=== PATIENT | male | born 1935 | race Caucasian/White ===

== ENCOUNTER 2017-10-02 12:42 | Inpatient (IN) ==
[2017-10-02] MEDS ORDERED: IPRATROPIUM/ALBUTEROL 3 ML AMPUL.NEB NEB ONE ×2 (13:00→18:07)
[2017-10-02] MEDS ORDERED: ALBUTEROL SULFATE 2.5 MG/3 ML NEBULIZER NEB ONE ×2 (13:16→15:02)
[2017-10-02] MEDS ORDERED: 0.9 % SODIUM CHLORIDE 1,000 ML IV ONE (13:16)
[2017-10-02 13:56] LABS: Basophils # (Auto) 0 K/mcL (0.0-0.3); Basophils % (Auto) 0.3 % (0.0-2.0); Eosinophils # (Auto) 0 K/mcL (0.0-0.7); Eosinophils % (Auto) 0.5 % (0.0-7.0); Lymphocytes # (Auto) 0.6 K/mcL (1.5-4.8); Lymphocytes % (Auto) 16.5 % (15.5-49.0); Mean Cell Volume 94.4 fL (80.0-100.0); Mean Corpuscular HGB Conc 33.7 g/dL (31.0-36.0); Mean Corpuscular Hemoglobin 31.8 pg (26.0-34.0); Monocytes # (Auto) 0.3 K/mcL (0.1-0.9); Monocytes % (Auto) 9.7 % (1.0-12.0); Platelet Count 231 K/mcL (140-440); RBC 4.73 M/mcL (4.50-5.90); Red Cell Distribution Width 12.6 % (11.5-14.5)
[2017-10-02 14:21] LABS: ALT/SGPT 24 U/l (0-40); Albumin 3.9 gm/dL (3.2-5.2); Albumin/Globulin Ratio 1.3 (1.0-2.3); Alkaline Phosphatase 86 U/L (39-117); Blood Urea Nitrogen 14 mg/dl (8-23)
--- NOTE | 2017-10-02 14:42 | Emergency Department Note ---
SOB HPI - General Chief Complaint: Shortness of Breath/Dyspnea Stated Complaint: SOB Time Seen by Provider: 10/02/17 13:01 Source: patient Mode of arrival: ambulatory Limitations: no limitations - History of Present Illness 81-year-old male with shortness of breath/tightness in his chest. He was recently seen on 09/27/2017 or 6 days ago and was prescribed azithromycin and Tessalon Perles which have not helped much. He denies fever chills nausea vomiting diarrhea. He has known COPD but is not on oxygen or medicines for that - Related Data Home Medications Medication Instructions Recorded Confirmed Vitamin C PO 06/07/15 03/31/17 aspirin 81 mg tablet,delayed 81 mg PO QDAY tab 06/07/15 10/02/17 release garlic 1 tab PO DAILY 06/07/15 10/02/17 Previous Rx's Medication Instructions Recorded ramipril 5 mg capsule 5 mg PO QDAY #90 cap 07/26/17 simvastatin 40 mg tablet 40 mg PO QPM 90 Days #90 tab 08/09/17 tamsulosin 0.4 mg capsule 0.4 mg PO QDAY 90 Days #90 cap 08/25/17 omeprazole 20 mg capsule,delayed 20 mg PO QDAY 90 Days #90 cap 09/06/17 release Albuterol Sulfate [Ventolin] 2 puff INH Q4-6HP PRN #1 inhaler 10/02/17 Ipratropium/Albuterol [Duoneb] 3 ml NEB Q4HRT #60 ampul.neb 10/02/17 predniSONE [Prednisone] 10 mg PO DAILY #30 tab 10/02/17 Allergies Allergy/AdvReac Type Severity Reaction Status Date / Time penicillin V [From Pen-Vee K] Allergy Mild Hives Verified 08/19/16 11:33 Review of Systems All systems ED: reviewed and negative except as stated. Past Medical History - Past Medical History Attestation: Yes: The following information was validated with the patient. Medical history: Reports: cancer (prostate), COPD (With pulmonary fibrosis on CT scan), GERD, hyperlipidemia, hypertension, kidney stones Surgical history ED: Reports: herniorrhaphy, tonsillectomy, other (Urethrotomy, pylorotomy) - Social History smoking status: Former smoker Alcohol use: Reports: Daily Drug use: Reports: none Physical Exam Tight breaths until given breathing treatment with DuoNeb. Then moving air much better No acute distress. Resting comfortably. Normocephalic atraumatic. Conjunctive are clear sclerae white and nonicteric. No nasal discharge or congestion. Oropharynx is pink and moist. Neck is supple without lymphadenopathy or thyromegaly. Heart is regular rate and rhythm no murmur appreciated. Lungs mostly clear with end expiratory wheezing bilaterally with few rhonchi. A second breathing treatment with albuterol did not help as much. Continues to have pursed lip breathing. Abdomen soft nontender nondistended. No peritoneal signs or guarding. No pedal edema. +2 radial pulse. Alert and oriented Limitations: no limitations Course Vital Signs Temperature 97.8 F 10/02/17 12:44 Pulse Rate 102 H 10/02/17 12:44 Respiratory Rate 26 H 10/02/17 12:44 Blood Pressure 157/86 10/02/17 12:44 Pulse Oximetry (%) 92 10/02/17 12:44 Temperature 97.8 F 10/02/17 12:44 Pulse Rate 80 10/02/17 16:43 Respiratory Rate 22 10/02/17 15:05 Blood Pressure 127/87 10/02/17 14:46 Pulse Oximetry (%) 96 10/02/17 16:43 Shortness of Breath/Dyspnea - Lab Data Lab results reviewed: Yes I reviewed the patient's lab results. Result diagrams: 10/02/17 13:28 10/02/17 13:28 Lab Results 10/02/17 10/02/17 10/02/17 Range/Units 13:28 13:28 13:46 WBC 3.4 L (4.5-11.0) K/mcL RBC 4.73 (4.50-5.90) M/mcL Hgb 15.0 (13.5-16.5) g/dL Hct 44.6 (41.0-55.0) % POC Hct 47.0 (41.0-55.0) % MCV 94.4 (80.0-100.0) fL MCH 31.8 (26.0-34.0) pg MCHC 33.7 (31.0-36.0) g/dL RDW 12.6 (11.5-14.5) % Plt Count 231 (140-440) K/mcL MPV 7.6 (7.4-10.4) fL Gran % 73.0 (38.0-78.0) % Lymph % (Auto) 16.5 (15.5-49.0) % [place] % (Auto) 9.7 (1.0-12.0) % Eos % (Auto) 0.5 (0.0-7.0) % Baso % (Auto) 0.3 (0.0-2.0) % Gran # 2.5 (1.8-8.0) K/mcL Lymph # (Auto) 0.6 L (1.5-4.8) K/mcL [place] # (Auto) 0.3 (0.1-0.9) K/mcL Eos # (Auto) 0 (0.0-0.7) K/mcL Baso # (Auto) 0 (0.0-0.3) K/mcL VBG Lactic Acid 1.1 (0.5-2.2) mmol/L POC Sodium 135 (133-145) mmol/L Sodium 132 L (133-145) mmol/L POC Potassium 4.2 (3.3-5.1) mmol/L Potassium 4.4 (3.3-5.1) mmol/L POC Chloride 99 (96-108) mmol/L Chloride 97 (96-108) mmol/L Carbon Dioxide 24 (22-30) mmol/L POC Total CO2 25 (22-30) mmol/L Anion Gap 11.0 (8-16) POC BUN 15 (8-23) mg/dl BUN 14 (8-23) mg/dl Creatinine 0.9 (0.7-1.2) mg/dl POC Creatinine 0.9 (0.7-1.2) mg/dl GFR Calculation 81 Glucose 141 H (70-105) mg/dL POC Glucose 141 H (70-105) mg/dL Calcium 8.7 (8.6-10.4) mg/dl POC WB Ioniz Calcium 1.08 L (1.16-1.32) mmol/L Magnesium 2.0 (1.6-2.5) mg/dL Total Bilirubin 0.2 (0.0-1.0) mg/dL AST 36 (0-37) U/l ALT 24 (0-40) U/l Alkaline Phosphatase 86 (39-117) U/L Total Protein 6.8 (5.9-8.4) gm/dL Albumin 3.9 (3.2-5.2) gm/dL Globulin 2.9 (2.2-3.7) gm/dL Albumin/Globulin Ratio 1.3 (1.0-2.3) Arterial blood gas shows pH 7.42 PCO2 41 PO2 46. Oxygen was started - Radiology Data Radiology results reviewed: Yes I reviewed the patient's radiology results. X-ray of the chest today showed no change when compared to the one [address] scan was reviewed from 6 days ago which shows pulmonary fibrosis and centrilobular emphysema-no pulmonary embolism is seen Disposition Pt seen by [employer] HELPER/PA only: No Clinical Impression: Pulmonary fibrosis, Acute exacerbation of chronic obstructive airways disease Summary: Initially not moving air well . found to have likely COPD exacerbation with pulmonary fibrosis requiring oxygen-Walk to the bathroom places him in the low 80s for oxygen. did improve with DuoNeb and albuterol but still requiring oxygen via nasal cannula. CT scan is reviewed from previous hospital visit which showed pulmonary fibrosis and COPD but no embolus is seen. Chest x-ray shows no change today. Discussed his case with Dr. Ricardo Santillan who agreed to accept the patient for further inpatient care Disposition: Xfer As Inpt ([facility]) Condition: Fair Instructions: Pulmonary Fibrosis (ED), COPD Exacerbation, [place] (GEN) Prescriptions: Ipratropium/Albuterol [Duoneb] 3 ml NEB Q4HRT #60 ampul.neb Albuterol Sulfate [Ventolin] 2 puff INH Q4-6HP PRN #1 inhaler PRN Reason: Wheezing predniSONE [Prednisone] 10 mg PO DAILY #30 tab Referrals: Milton Marshall PA-C [Primary Care Provider] - Abdifatah Yee MD [Physician] -
[2017-10-02] MEDS ORDERED: methylPREDNISolone SOD SUCC 125 MG/2 ML VIAL IV ONE (15:57)
--- NOTE | 2017-10-02 16:55 | XRay Report ---
CLINICAL INFORMATION: Wheezing COMPARISON: 09/27/2017 chest x-ray and chest CTs from 06/20/2015 at 09/27/2017 FINDINGS: Heart size and mediastinum are normal. Pulmonary vessels appear slightly distended on today's study. Moderate centrilobular emphysema changes - best seen on chest CT again noted. There is mild pleural thickening throughout the entire left lung which is unchanged from the most recent study. Mild interstitial disease throughout both lungs has increased and is suspicious for edema superimposed upon interstitial fibrosis IMPRESSION: 1. Probable mild CHF. Please correlate with BNP and other supportive clinical history 2. Moderate centrilobular emphysema changes 3. Small pleural fibrosis throughout the left lung - stable. History of asbestos exposure is acknowledged 4. Moderate-sized hiatal hernia Interpreted and Authenticated by: Matthias Gonzalez 10/02/17
[2017-10-02] MEDS ORDERED: MAGNESIUM HYDROXIDE 30 ML ORAL.SUSP PO PRN (17:02)
[2017-10-02] MEDS ORDERED: DOCUSATE SODIUM 100 MG CAPSULE PO PRN (17:02)
[2017-10-02] MEDS ORDERED: ALBUTEROL SULFATE 2.5 MG/3 ML NEBULIZER NEB PRN (17:02)
[2017-10-02] MEDS ORDERED: ONDANSETRON 4 MG/2 ML VIAL IV PRN (17:02)
[2017-10-02] MEDS ORDERED: ACETAMINOPHEN 325 MG TABLET PO PRN (17:02)
--- NOTE | 2017-10-02 17:02 | Internal Med History&Physical ---
Medical - H&P: HPI Patient information: Note initiated : 10/02/17 at 5:02 pm Service Date, if different from initiated Date: [] Patient: Fernando Martin 81 y/o M admitted on 10/02/17 for Shortness of breath. Chief Complaint: [] History of present illness: Mr. Martin is a 81 year old man with a history of chronic tobacco abuse and hypertension. He was recently diagnosed with emphysema on his CAT scan, but prior to that says he had no knowledge of that. He smoked from the age of 20 until about the age of 81, and just quit about 1 month ago. He had cut down from 1 pack per day down to one third pack per day over the last several years. He was feeling okay until about a week ago, when he said after playing golf, he noticed increased cough. The cough got worse over time, so he presented to the emergency room on September 27. He had a chest x-ray and then a CT scan which showed emphysema but no definite pneumonia. He was diagnosed with bronchitis and prescribed a Z-Zhang. He says he seemed to get worse after starting the Z-Zhang, with worsened cough and chest tightness with the cough. Over the last day or 2 he is also noticed increasing dyspnea with exertion. Chest x-ray in the emergency room today is read as showing possible mild pulmonary vascular congestion. The patient seems stable for discharge, but then got up to walk and dropped his room air O2 saturations down into the low 80s. He is now admitted for observation to try to sort out why he is so hypoxic. He denies recent fever or chills, headaches. He says he has some lightheadedness which is chronic. He denies new eye or ear symptoms or sore throat. He denies swollen glands or neck stiffness. He denies any sharp chest pain or chest tightness, other than just his chest feeling full such that he has to cough. His cough is minimally productive. He denies orthopnea. He denies abdominal pain, nausea or vomiting, diarrhea or constipation or dysuria. Medical History Allergic reaction (Acute) Dermatitis (Acute) Essential hypertension (Chronic) Gastroesophageal reflux (Chronic) Hydrocele (Chronic) Right Hyperlipidemia (Chronic) Kidney stones (Chronic) Personal history of prostate cancer (Chronic) 2003 Radioactive seed implants Tobacco abuse (Chronic) Urinary frequency (Chronic) Surgical History History of colonoscopy (Chronic 05/28/04) Minor diverticulosis, uncomplicated, left colon. Internal hemorrhoids. History of hernia surgery (Chronic) History of surgery (Chronic) Pyloromyotomy As an infant Pyloric stenosis History of surgery (Chronic) 2003 Radioactive seed prostate implants History of tonsillectomy (Chronic) History of urethrotomy (Chronic) Visual Internal Urethrotomy 2012 Medication List aspirin 81 mg PO QDAY [garlic PO] omeprazole 20 mg PO QDAY 90 days ramipril 5 mg PO QDAY simvastatin 40 mg PO QPM 90 days tamsulosin 0.4 mg PO QDAY [Vitamin C PO] (Albuterol inhaler-patient denies that he is ever use this. He also denies that he is ever used duo nebs at home.) Allergies/Adverse Reactions penicillin V [From Pen-Vee K] Allergy (Mild, Verified 08/19/16 11:33) Hives Family History Unknown Cardiovascular disease Social history: The patient smoked from the age of 20 until 81. He smoked between a third and a pack per day until recently. He did quit 1 month ago. He has one alcohol containing drink each evening. He does not use drugs. He lives with his . He says most of his family is spread out between [place] and [place]. Medical - H&P: Meds Home Medications Medication Instructions Recorded Confirmed Type aspirin 81 mg tablet,delayed 81 mg PO QDAY tab 06/07/15 10/02/17 History release simvastatin 40 mg tablet 40 mg PO QPM 90 Days #90 tab 08/09/17 10/02/17 Rx tamsulosin 0.4 mg capsule 0.4 mg PO QDAY 90 Days #90 cap 08/25/17 10/02/17 Rx omeprazole 20 mg capsule,delayed 20 mg PO QDAY 90 Days #90 cap 09/06/17 Rx release Albuterol Sulfate [Ventolin] 2 puff INH Q4-6HP PRN #1 inhaler 10/02/17 Rx Ipratropium/Albuterol [Duoneb] 3 ml NEB Q4HRT #60 ampul.neb 10/02/17 Rx Ramipril [Altace] 5 mg PO QPM 10/02/17 10/02/17 History Vitamin C 1,000 mg PO DAILY 10/02/17 10/02/17 History Allergies Allergy/AdvReac Type Severity Reaction Status Date / Time penicillin V [From Jayy-Maria Teresa Hu] Allergy Mild Hives Verified 08/19/16 11:33 Medical - H&P: Exam - Constitutional Vitals: Temp Pulse Resp BP Pulse Ox 97.8 F 80 22 127/87 96 10/02/17 16:53 10/02/17 16:53 10/02/17 16:53 10/02/17 16:53 10/02/17 16:53 O2 saturations in the emergency room range from 80% to 91% on room air, and currently are 96% on 2 L. Patient is a pleasant elderly man, sitting up in a chair, eating a sandwich when I entered the room. He is in no acute distress. Head: Normocephalic, atraumatic. Eyes: Pupils are pinpoint, EOMI, anicteric. Ears: TMs and canals are clear. Pharynx: Dentition is in good condition, although nicotine stained. Mucosa appears normal. Posterior pharynx was not well visualized, but no exudate was evident. Neck: Is supple, without lymphadenopathy, JVD, thyromegaly, bruits. Cardiac exam: Shows regular rate and rhythm with normal S1 and S2, without murmurs, rubs, gallops. Lungs: She has crackles and soft wheezes at both bases, and perhaps one third to fpc up. No rhonchi are noted. There is no accessory muscle use. Abdomen: Is soft and nontender with no obvious masses. Bowel sounds are active. Extremities: Show no cyanosis, clubbing, edema. Dorsalis pedis and posterior tibial pulses are 1+ bilaterally. Neurologic: Patient is alert and oriented, calm and cooperative. Motor exam is grossly nonfocal. Skin exam does not show any obvious lesions. Medical - H&P: Reslt - Labs CBC & Chem 7: 10/02/17 13:28 10/02/17 13:28 Labs: Short CBC 10/02/17 Range/Units 13:28 WBC 3.4 L (4.5-11.0) K/mcL Hgb 15.0 (13.5-16.5) g/dL Hct 44.6 (41.0-55.0) % Plt Count 231 (140-440) K/mcL BMP 10/02/17 13:28 Sodium 132 L Potassium 4.4 Chloride 97 Carbon Dioxide 24 BUN 14 Creatinine 0.9 Glucose 141 H Calcium 8.7 Liver Function 10/02/17 Range/Units 13:28 Total Bilirubin 0.2 (0.0-1.0) mg/dL AST 36 (0-37) U/l ALT 24 (0-40) U/l Alkaline Phosphatase 86 (39-117) U/L Albumin 3.9 (3.2-5.2) gm/dL October 02: D-dimer is elevated at 1.05 Troponin is normal at less than 0.01. Pro-BNP is normal at 172 ABG on room air: PH 7.42, PCO2 41, PO2 46, bicarb 26, O2 saturation 80% Chest x-ray: IMPRESSION: 1. Probable mild CHF. Please correlate with BNP and other supportive clinical history. 2. Moderate centrilobular emphysema changes. 3. Small pleural fibrosis throughout the left lung - stable. History of asbestos exposure is acknowledged. 4. Moderate-sized hiatal hernia. September 27: Chest CT with contrast:IMPRESSION: 1. Mild diffuse left pleural thickening in the mid and lower thoracic region which has increased from the comparison CT over two years ago. It is almost certainly benign fibrosis rather than mesothelioma or other form of malignancy. Suggest: Six-month follow-up chest CT without contrast for reassessment. 2. Scattered bilateral partially calcified pleural plaques compatible with asbestos exposure. 3. Moderate centrilobular emphysema with scattered scarring in both mid and lower lungs. A 12 mm fragment is a pleural-based triangular shaped nodule in the anterior segment left upper lobe is new but is still almost certainly fibrosis. This should also be reassessed at time of follow-up chest CT. 4. Small hiatal hernia - consider chronic / recurrent aspiration Medical - H&P: A/P (1) Acute on chronic respiratory failure Current visit: Yes Status: Acute (2) Tobacco abuse, in remission Current visit: Yes Status: Chronic (3) Pulmonary fibrosis Current visit: No Status: Chronic (4) Acute exacerbation of chronic obstructive airways disease Current visit: No Status: Acute (5) Tobacco abuse Current visit: No Status: Chronic - Narrative A/P Narrative: #1. Pulmonary. Patient presents with progressive dyspnea. CT shows evidence of significant underlying emphysema fibrosis. The most likely scenario seems to be that he has underlying COPD and superimposed bronchitis has triggered a COPD exacerbation. D-dimer is elevated, but he did have a CT with dye on September 27 , that did not show any signs of PE. BNP is within normal limits, so votes against significant CHF. Also notes his has had a recent respiratory illness, so they may have similar exposure. -Admit for monitoring, oxygen supplementation. -Scheduled duo nebs and as needed albuterol. -Trial IV steroids. #2. CODE STATUS: Full code. Patient says his will act as his POA. 3. DVT prophylaxis: Subcu heparin. 4. History of prostate cancer, with recent recurrence. Dr. Serrano recommends a watch and wait strategy. Continue Flomax for bladder symptoms. 5. He is to have chronic tobacco abuse. Patient quit 1 month ago. 6. Hypertension. Monitor. Continue JJ inhibitor. Continue aspirin. 7. GI. History of GERD. Continue Prilosec. #8. Endocrine. Mild hyponatremia, possibly due to pulmonary process. Monitor. Calcium also appears low. Today's visit took approximately 60 minutes, to review the patient's case with the ER MD, review old records, review test results, interview and examine him, and write orders.
[2017-10-02] MEDS ORDERED: IPRATROPIUM/ALBUTEROL 3 ML AMPUL.NEB NEB SCH (19:00)
[2017-10-02] MEDS: 0.9 % SODIUM CHLORIDE 10 ML SYRINGE IV SCH (20:02)
[2017-10-02] MEDS: HEPARIN 5,000 UNIT/ML VIAL SQ SCH (20:19)
[2017-10-02] MEDS: SIMVASTATIN 40 MG TABLET PO SCH (21:41)
[2017-10-02] MEDS: methylPREDNISolone SOD SUCC 125 MG/2 ML VIAL IV SCH (21:41)
[2017-10-02] MEDS: RAMIPRIL 2.5 MG CAPSULE PO SCH (21:51)
[2017-10-03] MEDS: IPRATROPIUM/ALBUTEROL 3 ML AMPUL.NEB NEB SCH ×4 (00:08→19:05)
[2017-10-03] MEDS: methylPREDNISolone SOD SUCC 125 MG/2 ML VIAL IV SCH ×3 (05:24→21:18)
[2017-10-03] MEDS: 0.9 % SODIUM CHLORIDE 10 ML SYRINGE IV SCH ×3 (05:24→20:24)
[2017-10-03 06:28] LABS: Basophils # (Auto) 0 K/mcL (0.0-0.3); Basophils % (Auto) 0.1 % (0.0-2.0); Eosinophils # (Auto) 0 K/mcL (0.0-0.7); Eosinophils % (Auto) 0.2 % (0.0-7.0); Granulocytes % (Auto) 76.3 % (38.0-78.0); Lymphocytes # (Auto) 0.3 K/mcL (1.5-4.8); Lymphocytes % (Auto) 19.3 % (15.5-49.0); Mean Cell Volume 94.6 fL (80.0-100.0); Mean Corpuscular Hemoglobin 32.2 pg (26.0-34.0); Monocytes # (Auto) 0.1 K/mcL (0.1-0.9); Monocytes % (Auto) 4.1 % (1.0-12.0); Platelet Count 220 K/mcL (140-440); RBC 4.35 M/mcL (4.50-5.90); Red Cell Distribution Width 12.5 % (11.5-14.5)
[2017-10-03 06:52] LABS: ALT/SGPT 23 U/l (0-40); Albumin 3.7 gm/dL (3.2-5.2); Albumin/Globulin Ratio 1.3 (1.0-2.3); Alkaline Phosphatase 82 U/L (39-117); Bilirubin,Direct < 0.2 mg/dL (0.0-0.3); Blood Urea Nitrogen 14 mg/dl (8-23); Gamma Glutamyl Transpeptidase 55 U/L (8-61); Magnesium 1.9 mg/dL (1.6-2.5); Uric Acid 3.1 mg/dL (2.5-8.0)
[2017-10-03] MEDS: OMEPRAZOLE 20 MG CAPSULE PO SCH (08:14)
[2017-10-03] MEDS: HEPARIN 5,000 UNIT/ML VIAL SQ SCH ×2 (08:22→20:24)
[2017-10-03] MEDS: TAMSULOSIN 0.4 MG CAPSULE PO SCH (08:22)
[2017-10-03] MEDS: ASPIRIN 81 MG TAB.CHEW PO SCH (08:22)
[2017-10-03] MEDS: ASCORBIC ACID 500 MG TABLET PO SCH (08:22)
[2017-10-03] MEDS ORDERED: PNEUMOCOCCAL 23-VAL P-SAC VAC 0.5 ML VIAL IM ONE (10:00)
[2017-10-03] MEDS ORDERED: FLU VACC QS2017-18 36MOS UP/PF 60 MCG/0.5 ML SYRINGE IM ONE (10:00)
--- NOTE | 2017-10-03 14:18 | Internal Med Progress Note ---
Medical - PN: Subj Patient information: Note initiated : 10/03/17 at 2:18 pm Service Date, if different from initiated Date: [] Patient: Fernando Martin 81 y/o M admitted on 10/02/17 for Shortness of breath. Chief Complaint: [] Interval history: October 02, 2017: History of present illness: Mr. Martin is a 81 year old man with a history of chronic tobacco abuse and hypertension. He was recently diagnosed with emphysema on his CAT scan, but prior to that says he had no knowledge of that. He smoked from the age of 20 until about the age of 81, and just quit about 1 month ago. He had cut down from 1 pack per day down to one third pack per day over the last several years. He was feeling okay until about a week ago, when he said after playing golf, he noticed increased cough. The cough got worse over time, so he presented to the emergency room on September 27. He had a chest x-ray and then a CT scan which showed emphysema but no definite pneumonia. He was diagnosed with bronchitis and prescribed a Z-Zhang. He says he seemed to get worse after starting the Z-Zhang, with worsened cough and chest tightness with the cough. Over the last day or 2 he is also noticed increasing dyspnea with exertion. Chest x-ray in the emergency room today is read as showing possible mild pulmonary vascular congestion. The patient seems stable for discharge, but then got up to walk and dropped his room air O2 saturations down into the low 80s. He is now admitted for observation to try to sort out why he is so hypoxic. He denies recent fever or chills, headaches. He says he has some lightheadedness which is chronic. He denies new eye or ear symptoms or sore throat. He denies swollen glands or neck stiffness. He denies any sharp chest pain or chest tightness, other than just his chest feeling full such that he has to cough. His cough is minimally productive. He denies orthopnea. He denies abdominal pain, nausea or vomiting, diarrhea or constipation or dysuria. October 03: The patient reports he is feeling better today. He reports only mild dyspnea with exertion. However, when respiratory therapy walked him in the hallways on room air today, he dropped his O2 sat down to about 82%. He recovered to the mid to upper 80s on 3 L nasal cannula. He runs around 95% at rest on 3 L nasal cannula. He otherwise denies fever chills, dizziness, chest pain or palpitations. He continues to have a mild nonproductive cough. He denies abdominal pain, nausea or vomiting, diarrhea or dysuria. - Constitutional Vitals: Vital Signs Temp Pulse Resp BP Pulse Ox 98.3 F 70 16 145/80 95 10/03/17 11:52 10/03/17 13:31 10/03/17 13:31 10/03/17 11:52 10/03/17 11:52 Period Temp Pulse Resp BP Sys/Engel Pulse Ox Last 24 Hr 97.5 F-98.4 F 61-85 14-22 127-166/56-89 80-97 Intake and Output 10/03/17 10/03/17 10/03/17 05:59 13:59 21:59 Intake Total 400 / 400 Output Total 625 / 625 525 / 525 Balance -225 / -225 -525 / -525 Intake & Output: Intake & Output 10/03/17 10/03/17 10/03/17 05:59 13:59 21:59 Intake Total 400 / 400 Output Total 625 / 625 525 / 525 Balance -225 / -225 -525 / -525 Intake: Oral 400 / 400 Output: Void Amount 625 / 625 525 / 525 On exam, he is sitting up in his chair, in no acute distress. Neck is supple. Cardiac exam shows regular rate and rhythm. Lungs: Have generally decreased breath sounds, with a few crackles at the right base, but are otherwise fairly clear without significant wheezing. Abdomen is soft and nontender. Extremities show no significant edema. Medical - PN: Obj Da - Labs CBC & Chem 7: 10/03/17 04:35 10/03/17 04:35 Labs: Abnormal Lab Results 10/03/17 10/03/17 10/02/17 04:35 04:35 13:28 WBC 1.7 L RBC 4.35 L Gran # 1.3 L Lymph # (Auto) 0.3 L D-Dimer 1.05 H Sodium Glucose 168 H POC Glucose POC WB Ioniz Calcium 10/02/17 10/02/17 13:28 13:28 WBC 3.4 L RBC Gran # Lymph # (Auto) 0.6 L D-Dimer Sodium 132 L Glucose 141 H POC Glucose 141 H POC WB Ioniz Calcium 1.08 L October 03: Blood cultures are negative so far. October 02: D-dimer is elevated at 1.05 Troponin is normal at less than 0.01. Pro-BNP is normal at 172 ABG on room air: PH 7.42, PCO2 41, PO2 46, bicarb 26, O2 saturation 80% Chest x-ray: IMPRESSION: 1. Probable mild CHF. Please correlate with BNP and other supportive clinical history. 2. Moderate centrilobular emphysema changes. 3. Small pleural fibrosis throughout the left lung - stable. History of asbestos exposure is acknowledged. 4. Moderate-sized hiatal hernia. September 27: Chest CT with contrast:IMPRESSION: 1. Mild diffuse left pleural thickening in the mid and lower thoracic region which has increased from the comparison CT over two years ago. It is almost certainly benign fibrosis rather than mesothelioma or other form of malignancy. Suggest: Six-month follow-up chest CT without contrast for reassessment. 2. Scattered bilateral partially calcified pleural plaques compatible with asbestos exposure. 3. Moderate centrilobular emphysema with scattered scarring in both mid and lower lungs. A 12 mm fragment is a pleural-based triangular shaped nodule in the anterior segment left upper lobe is new but is still almost certainly fibrosis. This should also be reassessed at time of follow-up chest CT. 4. Small hiatal hernia - consider chronic / recurrent aspiration Meds: Medications Acetaminophen (Tylenol) 650 mg PO Q6HP PRN PRN Reason: PAIN/FEVER > 101 Albuterol Sulfate (Ventolin) 2.5 mg NEB Q2HP PRN PRN Reason: Shortness Of Breath Albuterol/Ipratropium (Duoneb) 3 ml NEB Q6HRT [facility] Last Admin: 10/03/17 13:26 Dose: 3 ml Ascorbic Acid (Vitamin C) 1,000 mg PO DAILY [facility] Last Admin: 10/03/17 08:22 Dose: 1,000 mg Aspirin (Aspirin) 81 mg PO DAILY [facility] Last Admin: 10/03/17 08:22 Dose: 81 mg Docusate Sodium (Colace) 100 mg PO BID PRN PRN Reason: Constipation Heparin Sodium (Porcine) (Heparin) 5,000 unit SQ Q12 [facility] Last Admin: 10/03/17 08:22 Dose: 5,000 unit Magnesium Hydroxide (Milk Of Magnesia) 30 ml PO DAILYP PRN PRN Reason: Constipation Methylprednisolone Sodium Succinate (Solu-Medrol) 80 mg IV Q8 [facility] Last Admin: 10/03/17 05:24 Dose: 80 mg Omeprazole (Prilosec) 20 mg PO QAMAC [facility] Last Admin: 10/03/17 08:14 Dose: 20 mg Ondansetron HCl (Zofran) 4 mg IV Q6HP PRN PRN Reason: Nausea And Vomiting Ramipril (Altace) 5 mg PO HS [facility] Last Admin: 10/02/17 21:51 Dose: 5 mg Simvastatin (Zocor) 40 mg PO QPM [facility] Last Admin: 10/02/17 21:41 Dose: 40 mg Sodium Chloride (Saline Flush) 10 ml IV Q8 [facility] Last Admin: 10/03/17 05:24 Dose: 10 ml Tamsulosin HCl (Flomax) 0.4 mg PO QDAY [facility] Last Admin: 10/03/17 08:22 Dose: 0.4 mg Medical - PN: A/P - Time Spent With Patient Total time spent is greater than 50% in coordination of care (as documented) at patient's floor/unit and/or counseling patient: 25 - 35 minutes (1) Acute on chronic respiratory failure Status: Acute Current Visit: Yes (2) Tobacco abuse, in remission Status: Chronic Current Visit: Yes (3) Pulmonary fibrosis Status: Chronic Current Visit: No (4) Acute exacerbation of chronic obstructive airways disease Status: Acute Current Visit: No (5) Tobacco abuse Status: Chronic Current Visit: No - Narrative A/P Narrative: #1. Pulmonary/infectious disease. Patient presents with progressive dyspnea. CT shows evidence of significant underlying emphysema fibrosis. The most likely scenario seems to be that he has underlying COPD and superimposed bronchitis has triggered a COPD exacerbation. D-dimer is elevated, but he did have a CT with dye on September 27 , that did not show any signs of PE. BNP is within normal limits, so votes against significant CHF. Also notes his has had a recent respiratory illness, so they may have similar exposure. -The patient continues to have significant hypoxia on room air today. We will continue with duo nebs and steroids. There is no current obvious pneumonia on radiologic studies. -Try to verify if he was screened for influenza and in the emergency room. If not we will do this today. Patient has significant leukopenia and lymphopenia. This may be due to a viral process. Continue to monitor. He will likely need to be discharged home with oxygen and possibly home nebulizers as well. He will need a follow-up with pulmonary to look into his underlying disease process further. -His chest CT scan also has various abnormalities, and radiology recommends a follow-up scan in 6 months. #2. CODE STATUS: Full code. Patient says his will act as his POA. 3. DVT prophylaxis: Subcu heparin. 4. History of prostate cancer, with recent recurrence. Dr. Serrano recommends a watch and wait strategy. Continue Flomax for bladder symptoms. 5. He is to have chronic tobacco abuse. Patient quit 1 month ago. Some of his current respiratory symptoms may be related to discontinuing tobacco use. 6. Hypertension. Monitor. Continue JJ inhibitor. Continue aspirin. 7. GI. History of GERD. Continue Prilosec. #8. Endocrine. Mild hyponatremia, possibly due to pulmonary process. Improving today. Mildly depressed calcium level. Continue to monitor. Mildly elevated glucose, likely due to steroids. Medical - PN: Qual - VTE Deep Vein Thrombosis/Pulmonary Embolism Present on Admission: No
[2017-10-03] MEDS: SIMVASTATIN 40 MG TABLET PO SCH (20:24)
[2017-10-03] MEDS: RAMIPRIL 2.5 MG CAPSULE PO SCH (21:18)
[2017-10-04] MEDS: IPRATROPIUM/ALBUTEROL 3 ML AMPUL.NEB NEB SCH ×2 (00:45→07:38)
[2017-10-04] MEDS: methylPREDNISolone SOD SUCC 125 MG/2 ML VIAL IV SCH (05:04)
[2017-10-04] MEDS: 0.9 % SODIUM CHLORIDE 10 ML SYRINGE IV SCH (05:04)
[2017-10-04 06:51] LABS: ALT/SGPT 24 U/l (0-40); Albumin 3.8 gm/dL (3.2-5.2); Albumin/Globulin Ratio 1.4 (1.0-2.3); Alkaline Phosphatase 69 U/L (39-117); Bilirubin,Direct < 0.2 mg/dL (0.0-0.3); Blood Urea Nitrogen 18 mg/dl (8-23); Gamma Glutamyl Transpeptidase 50 U/L (8-61); Magnesium 2.1 mg/dL (1.6-2.5)
[2017-10-04 07:08] LABS: Basophils # (Auto) 0 K/mcL (0.0-0.3); Basophils % (Auto) 0 % (0.0-2.0); Eosinophils # (Auto) 0 K/mcL (0.0-0.7); Eosinophils % (Auto) 0.4 % (0.0-7.0); Granulocytes % (Auto) 89.4 % (38.0-78.0); Lymphocytes # (Auto) 0.5 K/mcL (1.5-4.8); Lymphocytes % (Auto) 6.5 % (15.5-49.0); Mean Cell Volume 95.2 fL (80.0-100.0); Mean Corpuscular HGB Conc 33.5 g/dL (31.0-36.0); Mean Corpuscular Hemoglobin 31.9 pg (26.0-34.0); Monocytes # (Auto) 0.3 K/mcL (0.1-0.9); Monocytes % (Auto) 3.7 % (1.0-12.0); Platelet Count 267 K/mcL (140-440); RBC 4.39 M/mcL (4.50-5.90); Red Cell Distribution Width 12.7 % (11.5-14.5)
[2017-10-04] MEDS: OMEPRAZOLE 20 MG CAPSULE PO SCH (08:01)
--- NOTE | 2017-10-04 08:23 | Discharge Summary ---
Medical - DS: Prov Patient information: Note initiated : 10/04/17 at 8:16 am Service Date, if different from initiated Date: [] Patient: Fernando Martin 81 y/o M admitted on 10/02/17 for Shortness of breath. Chief Complaint: [] Date of admission: 10/02/17 16:47 Discharge date: 10/04/17 Primary care physician: Milton Marshall Admitting clinician: Lyla Castillo Consults: 10/02/17 16:17 Consult to Physician [CONS] Stat Comment: Consulting Provider: Lyla Castillo Reason For Exam: Physician to Consult Attending physician on discharge: Lyla Castillo Medical - DS: Meds - Discharge Medications Prescriptions: Albuterol Sulfate [Ventolin] 2.5 mg NEB Q2HP PRN #20 ampul.neb PRN Reason: Shortness Of Breath Ipratropium/Albuterol [Duoneb] 3 ml NEB Q6H #60 ampul.neb predniSONE [Deltasone] 20 mg PO DAILY #15 tab Active and Home Medications: Home Medications aspirin 81 mg tablet,delayed release 81 mg PO QDAY tab 06/07/15 [History Confirmed 10/02/17 Last Taken 10/02/17] simvastatin 40 mg tablet 40 mg PO QPM 90 Days #90 tab 08/09/17 [Rx Confirmed Last Taken 10/01/17] tamsulosin 0.4 mg capsule 0.4 mg PO QDAY 90 Days #90 cap 08/25/17 [Rx Confirmed 10/02/17 Last Taken 10/02/17] omeprazole 20 mg capsule,delayed release 20 mg PO QDAY 90 Days #90 cap 09/06/17 [Rx Confirmed 10/02/17 Last Taken 10/02/17] Albuterol Sulfate [Ventolin] 2 puff INH Q4-6HP PRN #1 inhaler 10/02/17 [Rx Last Taken Unknown] Ipratropium/Albuterol [Duoneb] 3 ml NEB Q4HRT #60 ampul.neb 10/02/17 [Rx Last Taken Unknown] Ramipril [Altace] 5 mg PO QPM 10/02/17 [History Confirmed 10/02/17 Last Taken ] Vitamin C 1,000 mg PO DAILY 10/02/17 [History Confirmed 10/02/17 Last Taken ] Medical - DS: Hosp Hospital course: Mr. Martin is a 81 year old M October 02, 2017: History of present illness: Mr. Martin is a 81 year old man with a history of chronic tobacco abuse and hypertension. He was recently diagnosed with emphysema on his CAT scan, but prior to that says he had no knowledge of that. He smoked from the age of 20 until about the age of 81, and just quit about 1 month ago. He had cut down from 1 pack per day down to one third pack per day over the last several years. He was feeling okay until about a week ago, when he said after playing golf, he noticed increased cough. The cough got worse over time, so he presented to the emergency room on September 27. He had a chest x-ray and then a CT scan which showed emphysema but no definite pneumonia. He was diagnosed with bronchitis and prescribed a Z-Zhang. He says he seemed to get worse after starting the Z-Zhang, with worsened cough and chest tightness with the cough. Over the last day or 2 he is also noticed increasing dyspnea with exertion. Chest x-ray in the emergency room today is read as showing possible mild pulmonary vascular congestion. The patient seems stable for discharge, but then got up to walk and dropped his room air O2 saturations down into the low 80s. He is now admitted for observation to try to sort out why he is so hypoxic. He denies recent fever or chills, headaches. He says he has some lightheadedness which is chronic. He denies new eye or ear symptoms or sore throat. He denies swollen glands or neck stiffness. He denies any sharp chest pain or chest tightness, other than just his chest feeling full such that he has to cough. His cough is minimally productive. He denies orthopnea. He denies abdominal pain, nausea or vomiting, diarrhea or constipation or dysuria. October 03: The patient reports he is feeling better today. He reports only mild dyspnea with exertion. However, when respiratory therapy walked him in the hallways on room air today, he dropped his O2 sat down to about 82%. He recovered to the mid to upper 80s on 3 L nasal cannula. He runs around 95% at rest on 3 L nasal cannula. He otherwise denies fever chills, dizziness, chest pain or palpitations. He continues to have a mild nonproductive cough. He denies abdominal pain, nausea or vomiting, diarrhea or dysuria. 10/04: Pt was admitted with hypoxia thought due to COPD exacerbation. He has continued to have hypoxia on room air, without evidence of pneumonia or CHF. He is anxious to return home, and feels fine on current treatment. He did not sleep well , but reports no fever, chills, chest pain, gi or gu sx' s. He continues to have mild BENITEZ and nonproductive cough. On exam, he is in no acute distress. neck is supple, no JVD, LN's Cor RRR Lungs- coarse BS throughout, scattered rhonchi and wheezes; no accessory muscle use. Abd - soft Ext - no edema A/P Narrative: #1. Pulmonary/infectious disease. Patient presents with progressive dyspnea. CT shows evidence of significant underlying emphysema fibrosis. The most likely scenario seems to be that he has underlying COPD and superimposed bronchitis has triggered a COPD exacerbation. D-dimer is elevated, but he did have a CT with dye on September 27 , that did not show any signs of PE. BNP is within normal limits, so votes against significant CHF. Also notes his has had a recent respiratory illness, so they may have similar exposure. -The patient continues to have significant hypoxia on room air today. He is otherwise stable, so will discharge home today with home O2 and duonebs, albuterol nebs. Change IV to oral steroid taper. He will need pulmonary f/u soon to further evaluate hypoxia. There is no current obvious pneumonia on radiologic studies. Flu screens were negative. Patient has significant leukopenia and lymphopenia. This may be due to a viral process. -- improving. -His chest CT scan also has various abnormalities, and radiology recommends a follow-up scan in 6 months. #2. CODE STATUS: Full code. Patient says his will act as his POA. 3. DVT prophylaxis: Subcu heparin. 4. History of prostate cancer, with recent recurrence. Dr. Serrano recommends a watch and wait strategy. Continue Flomax for bladder symptoms. 5. He is to have chronic tobacco abuse. Patient quit 1 month ago. Some of his current respiratory symptoms may be related to discontinuing tobacco use. 6. Hypertension. Monitor. Continue JJ inhibitor. Continue aspirin. 7. GI. History of GERD. Continue Prilosec. #8. Endocrine. Mild hyponatremia, possibly due to pulmonary process. Improving today. Mildly depressed calcium level. Continue to monitor. Mildly elevated glucose, likely due to steroids. Discharge diagnosis: acute on chronic resp failure, COPD, tobacco abuse,in remission. - Time Spent with Patient Total time spent providing and/or coordinating discharge services: Greater than 30 minutes Medical - DS: Exam - Constitutional Vitals: Vital Signs Temp Pulse Pulse Resp BP BP Pulse Ox 10/04/17 08:00 97.7 F 74 18 147/86 95 10/04/17 07:38 79 20 96 10/04/17 04:00 98.0 F 79 16 145/81 96 10/04/17 00:42 98.0 F 77 16 146/83 95 10/03/17 20:00 97.6 F 81 18 130/72 96 10/03/17 19:09 77 18 95 10/03/17 19:07 77 18 10/03/17 17:02 95 10/03/17 15:58 98.7 F 16 116/74 95 10/03/17 13:31 70 16 10/03/17 11:52 98.3 F 16 145/80 95 Intake and Output 10/03/17 10/04/17 10/04/17 21:59 05:59 13:59 Intake Total 500 / 500 450 / 450 Output Total 300 / 300 1000 / 1000 Balance 200 / 200 -550 / -550 Intake: Oral 500 / 500 450 / 450 Output: Void Amount 300 / 300 1000 / 1000 Other: Weight 165 lb Medical - DS: Data Labs on day of discharge: Labs from last 24 hours 10/04/17 10/04/17 10/04/17 06:29 04:56 04:56 WBC 7.0 Pending RBC 4.39 L Pending Hgb 14.0 Pending Hct 41.8 Pending MCV 95.2 Pending MCH 31.9 Pending MCHC 33.5 Pending RDW 12.7 Pending Plt Count 267 Pending MPV 7.5 Pending Gran % 89.4 H Lymph % (Auto) 6.5 L Jackson % (Auto) 3.7 Eos % (Auto) 0.4 Baso % (Auto) 0 Gran # 6.3 Lymph # (Auto) 0.5 L Jackson # (Auto) 0.3 Eos # (Auto) 0 Baso # (Auto) 0 Sodium 135 Potassium 4.6 Chloride 97 Carbon Dioxide 26 Anion Gap 12.0 BUN 18 Creatinine 0.9 GFR Calculation 81 Glucose 150 H Uric Acid 3.0 Calcium 8.8 Phosphorus 2.7 Magnesium 2.1 Total Bilirubin 0.3 Direct Bilirubin < 0.2 GGT 50 AST 34 ALT 24 Alkaline Phosphatase 69 Lactate Dehydrogenase 305 H Total Protein 6.6 Albumin 3.8 Globulin 2.8 Albumin/Globulin Ratio 1.4 Triglycerides 105 Influenza A (Rapid) Influenza B (Rapid) 10/03/17 16:10 WBC RBC Hgb Hct MCV MCH MCHC RDW Plt Count MPV Gran % Lymph % (Auto) Jackson % (Auto) Eos % (Auto) Baso % (Auto) Gran # Lymph # (Auto) Jackson # (Auto) Eos # (Auto) Baso # (Auto) Sodium Potassium Chloride Carbon Dioxide Anion Gap BUN Creatinine GFR Calculation Glucose Uric Acid Calcium Phosphorus Magnesium Total Bilirubin Direct Bilirubin GGT AST ALT Alkaline Phosphatase Lactate Dehydrogenase Total Protein Albumin Globulin Albumin/Globulin Ratio Triglycerides Influenza A (Rapid) Presumed negative Influenza B (Rapid) Presumed negative Preliminary micro results at discharge 10/02/17 13:51 Blood Culture - Preliminary Blood 10/02/17 13:46 Blood Culture - Preliminary Blood 10/03/17 10/03/17 10/02/17 04:35 04:35 13:28 WBC 1.7 L RBC 4.35 L Gran # 1.3 L Lymph # (Auto) 0.3 L D-Dimer 1.05 H Sodium Glucose 168 H POC Glucose POC WB Ioniz Calcium 10/02/17 10/02/17 13:28 13:28 WBC 3.4 L RBC Gran # Lymph # (Auto) 0.6 L D-Dimer Sodium 132 L Glucose 141 H POC Glucose 141 H POC WB Ioniz Calcium 1.08 L October 03: Blood cultures are negative so far. October 02: D-dimer is elevated at 1.05 Troponin is normal at less than 0.01. Pro-BNP is normal at 172 ABG on room air: PH 7.42, PCO2 41, PO2 46, bicarb 26, O2 saturation 80% Chest x-ray: IMPRESSION: 1. Probable mild CHF. Please correlate with BNP and other supportive clinical history. 2. Moderate centrilobular emphysema changes. 3. Small pleural fibrosis throughout the left lung - stable. History of asbestos exposure is acknowledged. 4. Moderate-sized hiatal hernia. September 27: Chest CT with contrast:IMPRESSION: 1. Mild diffuse left pleural thickening in the mid and lower thoracic region which has increased from the comparison CT over two years ago. It is almost certainly benign fibrosis rather than mesothelioma or other form of malignancy. Suggest: Six-month follow-up chest CT without contrast for reassessment. 2. Scattered bilateral partially calcified pleural plaques compatible with asbestos exposure. 3. Moderate centrilobular emphysema with scattered scarring in both mid and lower lungs. A 12 mm fragment is a pleural-based triangular shaped nodule in the anterior segment left upper lobe is new but is still almost certainly fibrosis. This should also be reassessed at time of follow-up chest CT. 4. Small hiatal hernia - consider chronic / recurrent aspiration Medical - DS: A/P - Patient/Caregiver Discharge Instructions Activity: increase activity as tolerated Diet: Regular Diet Additional Instructions: 1. Pulmonary. COPD/emphysema exacerbation. Your oxygen continues to run quite low. You should consider buying an oximeter at the pharmacy, so that you can measure your oxygen levels at home. Home with oxygen per [facility] [place]. Keep your O2 saturations between 88 and 92%. Follow-up either with your primary care doctor or with Dr. Yee of pulmonary. We will also send you home with nebulizer treatments. Please use the DuoNeb treatment 3-4 times a day until you follow-up with your doctors. #2. The CAT scan of your chest had various abnormalities. They did recommend a follow-up scan in 6 months. Please review this with the pulmonary doctor. [place] [phone] Call [facility] when you arrive home so they can set you up with your home Oxygen and Nebulizer Prescriptions: Albuterol Sulfate [Ventolin] 2.5 mg NEB Q2HP PRN #20 ampul.neb PRN Reason: Shortness Of Breath Ipratropium/Albuterol [Duoneb] 3 ml NEB Q6H #60 ampul.neb predniSONE [Deltasone] 20 mg PO DAILY #15 tab Other Amb Orders: Home Oxygen Order Location: Determined By Patient - Problem Maintenance (1) Acute on chronic respiratory failure Status: Acute (2) Tobacco abuse, in remission Status: Chronic (3) Pulmonary fibrosis Status: Chronic (4) Acute exacerbation of chronic obstructive airways disease Status: Acute (5) Tobacco abuse Status: Chronic - Follow up Plan Follow up with: Milton Marshall PA-C [Primary Care Provider] - 10/12/17 10:00 am Abdifatah Yee MD [Physician] - (Call to set up an appointment as soon as they have an opening.) Disposition: Home, Self-Care Prognosis: Good Rehab Potential: Good Overall status at discharge: patient is not back to baseline Medical - DS: Qual - VTE Deep Vein Thrombosis/Pulmonary Embolism Present on Admission: No
[2017-10-04] MEDS: ASPIRIN 81 MG TAB.CHEW PO SCH (09:04)
[2017-10-04] MEDS: TAMSULOSIN 0.4 MG CAPSULE PO SCH (09:04)
[2017-10-04] MEDS: HEPARIN 5,000 UNIT/ML VIAL SQ SCH (09:05)
[2017-10-04] MEDS: ASCORBIC ACID 500 MG TABLET PO SCH (09:05)
--- NOTE | 2017-10-04 11:34 | Internal Med Progress Note ---
Medical - Auxillary Note - Subjective Patient Information: Note initiated : 10/04/17 at 11:34 am Service Date, if different from initiated Date: [] Patient: Fernando Martin 81 y/o M admitted on 10/02/17 for Shortness of breath. Chief Complaint: [] Vital Signs Temp Pulse Resp BP Pulse Ox 97.7 F 74 18 147/86 95 10/04/17 08:00 10/04/17 08:00 10/04/17 08:00 10/04/17 08:00 10/04/17 08:00 Period Temp Pulse Resp BP Sys/Engel Pulse Ox Last 24 Hr 97.6 F-98.7 F 70-81 16-20 116-147/72-86 95-96 Intake and Output 10/03/17 10/04/17 10/04/17 21:59 05:59 13:59 Intake Total 500 / 500 450 / 450 Output Total 300 / 300 1000 / 1000 Balance 200 / 200 -550 / -550 Weight 165 lb Medications Acetaminophen (Tylenol) 650 mg PO Q6HP PRN PRN Reason: PAIN/FEVER > 101 Albuterol Sulfate (Ventolin) 2.5 mg NEB Q2HP PRN PRN Reason: Shortness Of Breath Albuterol/Ipratropium (Duoneb) 3 ml NEB Q6HRT [facility] Last Admin: 10/04/17 07:38 Dose: 3 ml Ascorbic Acid (Vitamin C) 1,000 mg PO DAILY [facility] Last Admin: 10/04/17 09:05 Dose: 1,000 mg Aspirin (Aspirin) 81 mg PO DAILY [facility] Last Admin: 10/04/17 09:04 Dose: 81 mg Docusate Sodium (Colace) 100 mg PO BID PRN PRN Reason: Constipation Heparin Sodium (Porcine) (Heparin) 5,000 unit SQ Q12 [facility] Last Admin: 10/04/17 09:05 Dose: 5,000 unit Magnesium Hydroxide (Milk Of Magnesia) 30 ml PO DAILYP PRN PRN Reason: Constipation Methylprednisolone Sodium Succinate (Solu-Medrol) 80 mg IV Q8 [facility] Last Admin: 10/04/17 05:04 Dose: 80 mg Omeprazole (Prilosec) 20 mg PO QAMAC [facility] Last Admin: 10/04/17 08:01 Dose: 20 mg Ondansetron HCl (Zofran) 4 mg IV Q6HP PRN PRN Reason: Nausea And Vomiting Ramipril (Altace) 5 mg PO HS [facility] Last Admin: 10/03/17 21:18 Dose: 5 mg Simvastatin (Zocor) 40 mg PO QPM [facility] Last Admin: 10/03/17 20:24 Dose: 40 mg Sodium Chloride (Saline Flush) 10 ml IV Q8 [facility] Last Admin: 10/04/17 05:04 Dose: 10 ml Tamsulosin HCl (Flomax) 0.4 mg PO QDAY [facility] Last Admin: 10/04/17 09:04 Dose: 0.4 mg Result [facility] 10/04/17 06:29 10/04/17 04:56 Abnormal Labs 10/04/17 10/04/17 10/03/17 06:29 04:56 04:35 WBC 1.7 L RBC 4.39 L 4.35 L Gran % 89.4 H Lymph % (Auto) 6.5 L Gran # 1.3 L Lymph # (Auto) 0.5 L 0.3 L D-Dimer Sodium Glucose 150 H POC Glucose POC WB Ioniz Calcium Lactate Dehydrogenase 305 H 10/03/17 10/02/17 10/02/17 04:35 13:28 13:28 WBC RBC Gran % Lymph % (Auto) Gran # Lymph # (Auto) D-Dimer 1.05 H Sodium 132 L Glucose 168 H 141 H POC Glucose 141 H POC WB Ioniz Calcium 1.08 L Lactate Dehydrogenase 10/02/17 13:28 WBC 3.4 L RBC Gran % Lymph % (Auto) Gran # Lymph # (Auto) 0.6 L D-Dimer Sodium Glucose POC Glucose POC WB Ioniz Calcium Lactate Dehydrogenase DC instructions: Oxygen for home use. Wear at all times to keep saturations 88- 92%.
== END 2017-10-04 12:30 | disposition home or self-care (01) | DRG 189 ==
LOC: ED 12:42 → MEDSUR 16:47
PROVIDERS: ADMIT Internal Medicine; ATTEND Internal Medicine